=== PATIENT | female | born 1955 | race Caucasian/White ===

== ENCOUNTER 2017-08-16 15:23 | Emergency (ER) | payer MEDICARE, MEDICAID, SELFPAY ==
--- NOTE | 2017-08-16 15:31 | ED.CHESTPAIN ---
HPI - Chest Pain <Olena Valdez PA-C - Last Filed: 08/16/17 22:34> General Chief Complaint: Chest Pain Stated Complaint: Panic Attack, SOB Time Seen by Provider: 08/16/17 15:31 Source: patient Mode of arrival: EMS Limitations: physical limitation History of Present Illness HPI narrative: This 62-year-old female comes in via EMS today due to an episode of generalized weakness with some chest pain and palpitations followed by a panic attack. She states that she was getting up with her caregiver when she felt weak all over, too much so to walk, then had ?racing heart ? and chest pain which she states lasted no more than a few seconds. She states that she felt like she wanted to sit or lie down due to the weakness which was generalized, not localized. She states that she started to feel very anxious and had a panic attack where she was crying and felt very scared. She took her Ativan at home which is usually helpful for her and states this has helped. She is feeling better now and does feel like this was typical of her panic attacks. She has a history of COPD, denies dyspnea currently though she did feel some when she was feeling more anxious earlier. Her contributes later that she is on oxygen at home. She denies any recent cough, fever, or respiratory symptoms. She denies any abdominal pain, nausea or vomiting today though she states she has chronic left-sided pain that she is working up with her PCP. She states she also has weakness there, not sure of source but her later contributes that this is related to her CVA. She denies any urinary symptoms. She had a bowel movement yesterday, states it is possible that she had some blood streaks in the stool, not sure. She has not had a bowel movement today. She denies any new pain or swelling in her extremities. She denies any other new complaints on systems review. Her has been supplies that she was diagnosed with AFib previously, had event monitor and also has a watchman device in place now. Related Data Home Medications Medication Instructions Recorded Confirmed clopidogrel 75 mg PO QDAY #0 05/16/17 08/16/17 fentanyl 150 mcg TOPICAL Q48H #0 05/16/17 08/16/17 fluticasone [Flonase Allergy 2 spray INTRANASAL BID #0 05/16/17 08/16/17 Relief] imipramine HCl 1 dose PO DIRECTED #0 05/16/17 08/16/17 loperamide 1 cap PO QIDP PRN #0 05/16/17 08/16/17 metoprolol succinate [Toprol XL] 25 mg PO QDAY #0 05/16/17 08/16/17 albuterol sulfate [Ventolin HFA] 2 puff INHALATION Q4H 08/16/17 08/16/17 aspirin 1 tab PO DAILY 08/16/17 08/16/17 digoxin [Digitek] 125 mcg PO DAILY 08/16/17 08/16/17 fentanyl 1 patch TRANSDERMAL Q48H 08/16/17 08/16/17 gabapentin 1 dose PO DIRECTED 08/16/17 08/16/17 lorazepam 1 - 2 mg PO TID 08/16/17 08/16/17 prednisone 20 mg PO DAILY PRN 08/16/17 08/16/17 quetiapine 1 - 2 tab PO BEDTIME 08/16/17 08/16/17 zolpidem 1 tab PO BEDTIME PRN 08/16/17 08/16/17 Allergies Allergy/AdvReac Type Severity Reaction Status Date / Time cyclobenzaprine Allergy Unknown Unverified 06/22/17 12:10 [CYCLOBENZAPRINE] ibuprofen [IBUPROFEN] Allergy Unknown Unverified 06/22/17 12:10 iodine [IODINE] Allergy Unknown Unverified 06/22/17 12:10 latex [LATEX] Allergy Unknown Unverified 06/22/17 12:10 Penicillins [PENICILLINS] Allergy Unknown Unverified 06/22/17 12:10 shellfish derived Allergy Unknown Unverified 06/22/17 12:10 [SHELLFISH DERIVED] Review of Systems <Olena Valdez PA-C - Last Filed: 08/16/17 22:34> Review of Systems All systems reviewed & are unremarkable except as noted in HPI and below Exam <Olena Valdez PA-C - Last Filed: 08/16/17 22:34> Initial Vital Signs Initial Vital Signs: Vital Signs Pulse Rate 76 08/16/17 15:32 Respiratory Rate 14 08/16/17 15:32 Blood Pressure 95/48 L 08/16/17 15:32 Pulse Oximetry 96 08/16/17 15:32 GENERAL APPEARANCE: Patient sitting comfortably, in no distress. NECK/THYROID: Neck supple, no masses LUNGS: Clear to auscultation bilaterally, no cough on exam. HEART: RRR without murmur, nl S1, S2, no S3 or S4. ABDOMEN: Soft, NT, ND, + BS x 4 quad EXTREM: No edema, cyanosis, or calf TTP NEURO: Alert, normal speech, does not move L. UE RECT: No external or palpable internal masses, there is only a small amount of brown stool in the vault, guaiac negative <Tomas Willis DO - Last Filed: 08/16/17 23:57> Initial Vital Signs Initial Vital Signs: Vital Signs Pulse Rate 76 08/16/17 15:32 Respiratory Rate 14 08/16/17 15:32 Blood Pressure 95/48 L 08/16/17 15:32 Pulse Oximetry 96 08/16/17 15:32 Course <Olena Valdez PA-C - Last Filed: 08/16/17 22:34> Orders Ordered: ED Orders 08/16/17 15:33 EKG-12 Lead Stat 08/16/17 15:39 XR chest 1V Stat 08/16/17 15:44 EKG-12 Lead Stat 08/16/17 16:05 Complete Blood Count AUTO DIFF Stat Comprehensive Metabolic Panel Stat Lipase Stat Magnesium Stat Troponin with CK Cardiac Panel Stat 08/16/17 19:01 EKG-12 Lead Stat 08/16/17 20:13 Potassium Stat Troponin I Stat Discontinued Medications Sodium Chloride (Normal Saline 0.9%) 1,000 mls @ 1,000 mls/hr IV BOLUS ONE Stop: 08/16/17 16:44 Last Infusion: 08/16/17 16:51 Dose: 0 mls/hr Admin: 08/16/17 15:51 Dose: 1,000 mls/hr Potassium Chloride 20 meq/ (Sodium Chloride) 260 mls @ 130 mls/hr IV NOW ONE Stop: 08/16/17 16:41 Last Infusion: 08/16/17 20:31 Dose: 0 mls/hr Admin: 08/16/17 16:57 Dose: 130 mls/hr Potassium Chloride (Klor-Con M20) 20 meq PO NOW ONE Stop: 08/16/17 16:46 Last Admin: 08/16/17 17:02 Dose: 20 meq Reevaluation(s) Reevaluation #1: Patient's systolic BPs are in the 70s on initial evaluation. She is sitting, alert, talking and appears comfortable. BP cuff noted to be large for her and changed with improvement in her BP is to 80s systolic. Family notes typical BP readings at home 100 to maybe 110 systolic. She has no h/o HTN. During most of her stay patient is resting and sleeping comfortably. She was awakened prior to discharge and is drinking juice and eating applesauce and reports feeling well without chest pain, palpitations, or weakness. 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 Advise that she needs to see her PCP within a day or so for close follow-up and have labs rechecked. Also advised to hold next Metoprolol dose until BP rechecked. She and are agreeable. Findings and EKGs reviewed with Dr. Cruz initially and Dr. Willis prior to d/c who agree with plan. Vital Signs - 8 hr 08/16/17 17:23 08/16/17 18:01 08/16/17 19:52 Pulse Rate 60 61 59 L Respiratory Rate 10 L 10 L 11 L Blood Pressure [Right Arm] 85/50 L 89/47 L 79/40 L Pulse Oximetry 97 95 98 08/16/17 20:30 08/16/17 21:35 Pulse Rate 60 64 Respiratory Rate 10 L 20 Blood Pressure [Right Arm] 87/48 L 95/76 Pulse Oximetry 98 99 <Tomas Willis, - Last Filed: 08/16/17 23:57> Orders Ordered: ED Orders 08/16/17 15:33 EKG-12 Lead Stat 08/16/17 15:39 XR chest 1V Stat 08/16/17 15:44 EKG-12 Lead Stat 08/16/17 16:05 Complete Blood Count AUTO DIFF Stat Comprehensive Metabolic Panel Stat Lipase Stat Magnesium Stat Troponin with CK Cardiac Panel Stat 08/16/17 19:01 EKG-12 Lead Stat 08/16/17 20:13 Potassium Stat Troponin I Stat Discontinued Medications Sodium Chloride (Normal Saline 0.9%) 1,000 mls @ 1,000 mls/hr IV BOLUS ONE Stop: 08/16/17 16:44 Last Infusion: 08/16/17 16:51 Dose: 0 mls/hr Admin: 08/16/17 15:51 Dose: 1,000 mls/hr Potassium Chloride 20 meq/ (Sodium Chloride) 260 mls @ 130 mls/hr IV NOW ONE Stop: 08/16/17 16:41 Last Infusion: 08/16/17 20:31 Dose: 0 mls/hr Admin: 08/16/17 16:57 Dose: 130 mls/hr Potassium Chloride (Klor-Con M20) 20 meq PO NOW ONE Stop: 08/16/17 16:46 Last Admin: 08/16/17 17:02 Dose: 20 meq Vital Signs - 8 hr 08/16/17 17:23 08/16/17 18:01 08/16/17 19:52 Pulse Rate 60 61 59 L Respiratory Rate 10 L 10 L 11 L Blood Pressure [Right Arm] 85/50 L 89/47 L 79/40 L Pulse Oximetry 97 95 98 08/16/17 20:30 08/16/17 21:35 Pulse Rate 60 64 Respiratory Rate 10 L 20 Blood Pressure [Right Arm] 87/48 L 95/76 Pulse Oximetry 98 99 MDM - Chest Pain <Olena Valdez PA-C - Last Filed: 08/16/17 22:34> Lab Data Result diagrams: 08/16/17 16:05 08/16/17 20:13 Lab Results 08/16/17 08/16/17 08/16/17 Range/Units 16:05 16:05 20:13 WBC 4.1 L (4.5-11.0) X10^3/uL RBC 3.80 L (4.0-5.2) X10^6/uL Hgb 11.1 L (12.0-16.0) g/dL Hct 33.6 L (36-46) % MCV 88.3 (80-100) fL MCH 29.3 (26-34) PG MCHC 33.2 (30-36) % RDW 13.8 (11.6-14.8) % Plt Count 169 (150-400) X10^3/uL Neut % (Auto) 47.5 L (50-75) % Lymph % (Auto) 37.5 (25-40) % [place] % (Auto) 8.8 (3-14) % Eos % (Auto) 5.3 H (2-4) % Baso % (Auto) 0.9 (0-2) % Neut # (Auto) 1900 L (8299-0422) /uL Sodium 143 (137-145) mmol/L Potassium 2.8 L 3.3 L (3.4-5.1) mmol/L Chloride 101 (98-107) mmol/L Carbon Dioxide 31 (22-32) mmol/L BUN 8 (7-17) mg/dL Creatinine 0.70 (0.52-1.04) mg/dL Estimated GFR > 60.0 (>60) mL/min BUN/Creatinine Ratio 11.4 (6-22) Glucose 150 H (80-110) mg/dL Calcium 8.4 (8.4-10.2) mg/dL Magnesium 1.9 (1.6-2.3) mg/dL Total Bilirubin 0.4 (0.2-1.3) mg/dL AST 53 H (14-36) IU/L ALT 40 (9-52) IU/L Alkaline Phosphatase 295 H (38-126) U/L Total Creatine Kinase 72 (30-135) U/L CK-MB (CK-2) TNP Troponin I < 0.012 < 0.012 (0.01-0.034) ng/mL Total Protein 7.1 (6.3-8.2) g/dL Albumin 3.6 (3.5-5.0) g/dL Globulin 3.5 (1.7-4.1) g/dL Albumin/Globulin Ratio 1.0 (1.0-2.8) Lipase 43 (23-300) U/L Imaging Data extremity: Radiologist's impression: [address] [address] XRay Report Signed Patient: Ingrid Maria MR#: [id number] : 1955 Acct:[id number] Age/Sex: 62 / F Date of Service: 08/16/17 Loc: ED Accession Number: [id number] Procedure: XR chest 1V Ordering Provider: Olena Valdez P.A-C PROCEDURE: XR CHEST 1V INDICATIONS: pain, shortness of breath TECHNIQUE: One view of the chest was acquired. COMPARISON: [facility], CHEST 1 VIEW, 11/07/2015, 22:49. FINDINGS: Surgical changes and devices: None. Lungs and pleura: No pleural effusions or pneumothorax. Lungs are clear. Mediastinum: Mediastinal contours appear normal. Heart size is normal. Bones and chest wall: No suspicious bony lesions. Overlying soft tissues appear unremarkable. IMPRESSION: No acute cardiopulmonary disease process. Dictated by: Shaniqua Thurman MD, PhD on 08/16/2017 at 16:00 Approved by: Shaniqua Thurman MD, PhD on 08/16/2017 at 16:01 ECG Data Attestation: I personally reviewed and interpreted this ECG as follows: (1. Normal sinus rhythm with some subtle new T-wave inversions, rate 73. 2. Normal sinus rhythm rate 61. Normal axis in both) Prior ECG tracings: available for review <Tomas Willis DO - Last Filed: 08/16/17 23:57> Lab Data Lab Results 08/16/17 08/16/17 08/16/17 Range/Units 16:05 16:05 20:13 WBC 4.1 L (4.5-11.0) X10^3/uL RBC 3.80 L (4.0-5.2) X10^6/uL Hgb 11.1 L (12.0-16.0) g/dL Hct 33.6 L (36-46) % MCV 88.3 (80-100) fL MCH 29.3 (26-34) PG MCHC 33.2 (30-36) % RDW 13.8 (11.6-14.8) % Plt Count 169 (150-400) X10^3/uL Neut % (Auto) 47.5 L (50-75) % Lymph % (Auto) 37.5 (25-40) % [place] % (Auto) 8.8 (3-14) % Eos % (Auto) 5.3 H (2-4) % Baso % (Auto) 0.9 (0-2) % Neut # (Auto) 1900 L (3589-6713) /uL Sodium 143 (137-145) mmol/L Potassium 2.8 L 3.3 L (3.4-5.1) mmol/L Chloride 101 (98-107) mmol/L Carbon Dioxide 31 (22-32) mmol/L BUN 8 (7-17) mg/dL Creatinine 0.70 (0.52-1.04) mg/dL Estimated GFR > 60.0 (>60) mL/min BUN/Creatinine Ratio 11.4 (6-22) Glucose 150 H (80-110) mg/dL Calcium 8.4 (8.4-10.2) mg/dL Magnesium 1.9 (1.6-2.3) mg/dL Total Bilirubin 0.4 (0.2-1.3) mg/dL AST 53 H (14-36) IU/L ALT 40 (9-52) IU/L Alkaline Phosphatase 295 H (38-126) U/L Total Creatine Kinase 72 (30-135) U/L CK-MB (CK-2) TNP Troponin I < 0.012 < 0.012 (0.01-0.034) ng/mL Total Protein 7.1 (6.3-8.2) g/dL Albumin 3.6 (3.5-5.0) g/dL Globulin 3.5 (1.7-4.1) g/dL Albumin/Globulin Ratio 1.0 (1.0-2.8) Lipase 43 (23-300) U/L Discharge Plan Departure Patient Disposition: Home, Self-Care Clinical Impression: Acute hypokalemia, Weakness, Anxiety Discharge Date/Time: 08/16/17 22:32 Interventions: ED Discharge Assessment Last Done: 08/16/17 22:32 Instructions: DI for Hypokalemia Activity Restrictions/Additional Instructions: I agree with you that you likely had some brief atrial fibrillation this morning that caused your heart palpitations and chest discomfort, and that your panic attack likely contributed to your symptoms. Since the chest discomfort had resolved by the time you got here and your ativan helped as usual, it is reasonable to monitor this at home. Your heart tests today did not show evidence of new heart attack or lack of oxygen. You were found to have low potassium today, which is a serious problem. This is corrected with the potassium you have had here, however I have given you a prescription for potassium to take once daily starting tomorrow, and you need to have your level rechecked with Dr. Hernandez's office tomorrow or at least by . Your blood pressure was also on the low side today versus your usual at home, so please do not take your Metoprolol tonight and have your blood pressure rechecked at your follow up visit as well. You should get to the closest ED if you are feeling acutely worse again Prescriptions: No Action fentanyl 50 MCG/HR patch 72 hour 150 mcg Topical Q48H Qty: 0 RF: 0 clopidogrel 75 MG tablet 75 mg PO QDAY Qty: 0 RF: 0 imipramine HCl 10 MG tablet 1 dose PO DIRECTED Qty: 0 RF: 0 loperamide 2 MG capsule 1 cap PO QIDP PRN (Reason: Loose Stool) Qty: 0 RF: 0 metoprolol succinate [Toprol XL] 25 MG tablet extended release 24 hr 25 mg PO QDAY Qty: 0 RF: 0 fluticasone [Flonase Allergy Relief] 9.9 ML spray,suspension 2 spray Intranasal BID Qty: 0 RF: 0 gabapentin 600 mg Tablet 1 dose PO DIRECTED RF: 0 prednisone 20 mg Tablet 20 mg PO DAILY PRN (Reason: Inflammation) RF: 0 quetiapine 100 mg Tablet 1 - 2 tab PO BEDTIME RF: 0 fentanyl 100 mcg/hr Patch 72 Hour 1 patch TRANSDERMAL Q48H RF: 0 digoxin [Digitek] 125 mcg Tablet 125 mcg PO DAILY RF: 0 albuterol sulfate [Ventolin HFA] 90 mcg/actuation Hfa Aerosol Inhaler 2 puff Inhalation Q4H RF: 0 zolpidem 12.5 mg Tablet,Ext Release Multiphase 1 tab PO BEDTIME PRN (Reason: Sleep) RF: 0 lorazepam 1 mg Tablet 1 - 2 mg PO TID RF: 0 aspirin tablet 1 tab PO DAILY RF: 0 Referrals: Jayesh Hernandez DO [Primary Care Provider] - Ponce Huntley MD [Non-Staff] - <Tomas Willis DO - Last Filed: 08/16/17 23:57> [facility]: Upon return home family realized there was no prescription for potassium, I wrote a prescription and faxed it to [facility] in no car were at their request. Potassium chloride 40 mEq p.o. daily x4 days no refills I was immediately available in the department for consultation. Documentation has been reviewed. I agree with assessment and plan.
[2017-08-16 15:32] VITALS: BP 95/48; PULSE 76; RESP 14; O2SAT 96
--- NOTE | 2017-08-16 15:39 | DI.RAD.S_ITS ---
PROCEDURE: XR CHEST 1V INDICATIONS: pain, shortness of breath TECHNIQUE: One view of the chest was acquired. COMPARISON: [facility], , CHEST 1 VIEW, 11/07/2015, 22:49. FINDINGS: Surgical changes and devices: None. Lungs and pleura: No pleural effusions or pneumothorax. Lungs are clear. Mediastinum: Mediastinal contours appear normal. Heart size is normal. Bones and chest wall: No suspicious bony lesions. Overlying soft tissues appear unremarkable. IMPRESSION: No acute cardiopulmonary disease process. Dictated by: Shaniqua Thurman MD, PhD on 08/16/2017 at 16:00 Approved by: Shaniqua Thurman MD, PhD on 08/16/2017 at 16:01
[2017-08-16] MEDS: SODIUM CHLORIDE 0.9% 1,000 ML 1000 ML IV (15:51)
[2017-08-16 16:12] LABS: Add Manual Diff / Slide Review NO; Basophils Percent Auto 0.9 % (0-2); Eosinophils Percent Auto 5.3 % (2-4); Hematocrit 33.6 % (36-46); Hemoglobin 11.1 g/dL (12.0-16.0); Lymphocytes Percent Auto 37.5 % (25-40); Mean Corpuscular HGB Conc 33.2 % (30-36); Mean Corpuscular Hemoglobin 29.3 PG (26-34); Mean Corpuscular Volume 88.3 fL (80-100); Monocytes Percent Auto 8.8 % (3-14); Neutrophils Absolute Auto 1900 /uL (3000-5900); Neutrophils Percent Auto 47.5 % (50-75); Platelet Count 169 X10^3/uL (150-400); Red Cell Distribution Width 13.8 % (11.6-14.8); White Blood Cell Count 4.1 X10^3/uL (4.5-11.0)
[2017-08-16 16:25] LABS: Alanine Aminotransferase 40 IU/L (9-52); Albumin 3.6 g/dL (3.5-5.0); Alkaline Phosphatase 295 U/L (38-126); Aspartate Aminotransferase 53 IU/L (14-36); BUN Creatinine Ratio 11.4 (6-22); Bilirubin Total 0.4 mg/dL (0.2-1.3); Blood Urea Nitrogen 8 mg/dL (7-17); Calcium 8.4 mg/dL (8.4-10.2); Carbon Dioxide 31 mmol/L (22-32); Chloride 101 mmol/L (98-107); Creatine Kinase 72 U/L (30-135); Estimated Glomerular Filt Rate > 60.0 mL/min (>60); Globulin 3.5 g/dL (1.7-4.1); Glucose 150 mg/dL (80-110); HEMOLYSIS < 15 (0-50); Lipase 43 U/L (23-300); Potassium 2.8 mmol/L (3.4-5.1); Sodium 143 mmol/L (137-145); Total Protein 7.1 g/dL (6.3-8.2)
[2017-08-16 16:38] LABS: Troponin I < 0.012 ng/mL (0.01-0.034)
[2017-08-16 16:53] LABS: Magnesium 1.9 mg/dL (1.6-2.3)
[2017-08-16] MEDS: POTASSIUM CHLORIDE 20 MEQ in SODIUM CHLORIDE 0.9% 250 ML 130 ML IV (16:57)
[2017-08-16] MEDS: POTASSIUM CHLORIDE 20 MEQ TAB PO (17:02)
[2017-08-16 17:23] VITALS: BP 85/50; PULSE 60; RESP 10; O2SAT 97
[2017-08-16 18:01] VITALS: BP 89/47; PULSE 61; RESP 10; O2SAT 95
[2017-08-16 19:52] VITALS: BP 79/40; PULSE 59; RESP 11; O2SAT 98
[2017-08-16 20:30] VITALS: BP 87/48; PULSE 60; RESP 10; O2SAT 98
[2017-08-16 20:31] LABS: HEMOLYSIS < 15 (0-50); Potassium 3.3 mmol/L (3.4-5.1)
[2017-08-16 20:47] LABS: Troponin I < 0.012 ng/mL (0.01-0.034)
[2017-08-16 21:35] VITALS: BP 95/76; PULSE 64; RESP 20; O2SAT 99
== END 2017-08-16 22:32 | disposition home or self-care (01) ==
PROVIDERS: Emergency Provider Internal Medicine; PCP Family Medicine
DX: E87.6 Hypokalemia (principal); R53.1 Weakness; F41.9 Anxiety disorder, unspecified
CPT/HCPCS: 36415; 71045; 80053; 82272; 82550; 83690; 83735; 84132; 84484; 85025; 93005; 96361; 96365; 96366; 99284; 99285; J3480

== ENCOUNTER → 2017-12-05 19:07 | Outpatient (CLI) | payer MEDICARE, MEDICAID, SELFPAY ==
--- NOTE | 2017-12-05 19:09 | DI.RAD.S_ITS ---
PROCEDURE: XR ELBOW LT MIN 3V INDICATIONS: Fall TECHNIQUE: 3 views of the elbow were acquired. COMPARISON: None. FINDINGS: Bones: No fractures or dislocations. No suspicious bony lesions. Soft tissues: No elbow joint effusion. No suspicious soft tissue calcifications. IMPRESSION: No fracture or dislocation. If clinical symptoms persist or clinical suspicion for pathology is high, a repeat examination in 7-10 days, or advanced imaging such as CT or MRI is suggested for further evaluation. Dictated by: Carlos Kraft M.D. on 12/05/2017 at 19:50 Approved by: Carlos Kraft M.D. on 12/05/2017 at 19:51
--- NOTE | 2017-12-05 19:09 | DI.RAD.S_ITS ---
PROCEDURE: XR SHOULDER LT MIN 2V INDICATIONS: Fall TECHNIQUE: 2 views of the shoulder were acquired. COMPARISON: [facility], CT, CHEST W/O CONTRAST, 01/15/2014, 11:29. [facility], CR, XR CHEST 1V, 08/16/2017, 15:54. FINDINGS: Bones: No fractures or dislocations. No suspicious bony lesions. There is [id number] glenohumeral and acromial clavicular joint degeneration. Visualized ribs appear intact. Soft tissues: No suspicious soft tissue calcifications. There are multiple calcific densities in the left lower lobe likely secondary to old granulomas. IMPRESSION: No acute fracture dislocation. If clinical symptoms persist or clinical suspicion for pathology is high, a repeat examination in 7-10 days, or advanced imaging such as CT or MRI is suggested for further evaluation. Dictated by: Carlos Kraft M.D. on 12/05/2017 at 19:51 Approved by: Carlos Kraft M.D. on 12/05/2017 at 19:54
== END ==
PROVIDERS: PCP Family Medicine; Visit Provider Physician Assistant
DX: M25.522 Pain in left elbow (principal); M25.512 Pain in left shoulder; W19.XXXA Unspecified fall, initial encounter
CPT/HCPCS: 73030; 73080

== ENCOUNTER → 2018-08-25 08:15 | Outpatient (CLI) | payer MEDICARE, MEDICAID, SELFPAY | PROVIDERS: PCP Family Medicine; Visit Provider Physician Assistant | DX: N39.0 Urinary tract infection, site not specified (principal) | CPT/HCPCS: 87077; 87086; 87186 ==

== ENCOUNTER → 2023-04-12 19:37 | Outpatient (CLI) | payer MEDICARE, MEDICAID, SELFPAY ==
--- NOTE | 2023-04-12 19:42 | DI.RAD.S_ITS ---
PROCEDURE: XR CERVICAL SPINE 2V OR 3V INDICATIONS: Neck pain, LUE radiculopathy, hx c-spine posterior fusion TECHNIQUE: 3 view(s) of the cervical spine were acquired. COMPARISON: None. FINDINGS: Bones: Massive cervico thoracic posterior leanne and screw construct is associated with discectomy and fusion in the lower cervical spine. Vertebral bodies appear grossly aligned, although evaluation is limited by significant hardware. Generalized decreased osseous mineralization noted. Additionally, larger bilateral craniotomies/cranioplasty with mesh and round and sq plate fixation. Large intracranial aneurysm coils noted near the suprasellar cistern Soft tissues: No prevertebral soft tissue swelling. IMPRESSION: Although evaluation is limited by extensive hardware overlap, no grossly displaced cervical fracture or evidence of hardware failure. Osteopenia. Partially imaged craniotomy/cranioplasty with mesh, fixation plates and large aneurysm coil Approved by: Maximilian Huizar M.D. on 04/13/2023 at 20:22
--- NOTE | 2023-04-12 19:42 | DI.RAD.S_ITS ---
PROCEDURE: XR ELBOW LT 2V INDICATIONS: s/p fall on LUE w/pain in humerus, elbow and wrist TECHNIQUE: 2 views of the elbow were acquired. COMPARISON: None. FINDINGS: Bones: No fractures or dislocations. No suspicious bony lesions. Soft tissues: No elbow joint effusion. No suspicious soft tissue calcifications. IMPRESSION: No acute bony abnormality or significant joint effusion. Approved by: Maximilian Huizar M.D. on 04/13/2023 at 20:14
--- NOTE | 2023-04-12 19:42 | DI.RAD.S_ITS ---
PROCEDURE: XR SHOULDER LT MIN 2V INDICATIONS: s/p fall on LUE w/pain in humerus, elbow and wrist TECHNIQUE: 3 views of the shoulder were acquired. COMPARISON: [facility], CR, XR SHOULDER LT MIN 2V, 12/05/2017, 18:46. FINDINGS: Bones: Left total shoulder arthroplasty is new from the prior exam. Hardware failure loosening. Extensive cervicothoracic leanne and screw instrumentation with presumed posterior decompression. Generalized decreased osseous mineralization noted. Soft tissues: No suspicious soft tissue calcifications. Parasternal implantable phototypesetting equipment monitor as well as atrial appendage occlusion device noted IMPRESSION: Osteopenia without fracture. Left total shoulder arthroplasty in good position. No hardware or loosening Approved by: Maximilian Huizar M.D. on 04/13/2023 at 20:18
--- NOTE | 2023-04-12 19:42 | DI.RAD.S_ITS ---
PROCEDURE: XR WRIST LT MIN 3V INDICATIONS: s/p fall on LUE w/pain in humerus, elbow and wrist TECHNIQUE: 5 views of the wrist were acquired. COMPARISON: None. FINDINGS: Bones: No fractures or dislocations. No suspicious bony lesions. First carpometacarpal joint space narrowing small marginal osteophyte. Generalized decreased osseous mineralization noted. Soft tissues: No suspicious soft tissue calcifications. IMPRESSION: Osteopenia, and osteoarthritis without fracture Approved by: Maximilian Huizar M.D. on 04/13/2023 at 20:15
== END ==
LOC: RAD 19:41
PROVIDERS: PCP Family Medicine; Referring Provider Physician Assistant Surgical; Visit Provider Physician Assistant Surgical
DX: S49.92XA Unspecified injury of left shoulder and upper arm, initial encounter (principal); M54.12 Radiculopathy, cervical region; M54.2 Cervicalgia; M85.89 Other specified disorders of bone density and structure, multiple sites; M19.032 Primary osteoarthritis, left wrist; M79.602 Pain in left arm; W19.XXXA Unspecified fall, initial encounter; Z96.612 Presence of left artificial shoulder joint; Z98.1 Arthrodesis status
CPT/HCPCS: 72040; 73030; 73070; 73110

== ENCOUNTER 2023-04-12 20:29 | Emergency (ER) | payer MEDICARE, MEDICAID, SELFPAY ==
[2023-04-12] VITALS (17 sets, daily range): BP systolic 84–114; BP diastolic 50–61; PULSE 61–78; RESP 7–22; TEMP 36.3; O2SAT 94–100; BMI 23.4
--- NOTE | 2023-04-12 20:49 | DI.CT.S_ITS ---
PROCEDURE: CT HEAD/BRAIN WO CON INDICATIONS: SLURRED SPEECH, DROOLING X3 DAYS, BREAKTHROUGH SEIZURE TONIG TECHNIQUE: Noncontrast 4.5 mm thick angled axial sections acquired from the foramen magnum to the vertex, with coronal and sagittal reformats. For radiation dose reduction, the following was used: automated exposure control, adjustment of mA and/or kV according to patient size. COMPARISON: [facility], CT, HEAD WITHOUT CONTRAST, 05/16/2017, 17:29. FINDINGS: Image quality: Diagnostic. Suboptimal evaluation due to metallic artifact from an embolization coil in the left MCA territory. CSF spaces: Basal cisterns are patent. No extra-axial fluid collections. Ventricles are normal in size and shape. Brain: No midline shift. No intracranial masses or hemorrhage. Levy-white matter interface is normal. Right MCA territory encephalomalacia. Skull and face: Calvarium and visualized facial bones are intact, without suspicious lesions. [place] holes and craniectomies with overlying mesh. Sinuses: Visualized sinuses and mastoids are clear. IMPRESSION: No acute intracranial pathology. Dictated by: Addison Walker M.D. on 04/12/2023 at 21:59 Approved by: Addison Walker M.D. on 04/12/2023 at 22:01
--- NOTE | 2023-04-12 20:50 | DI.RAD.S_ITS ---
PROCEDURE: XR CHEST 1V INDICATIONS: SLURRED SPEECH, DROOLING X3 DAYS, BREAKTHROUGH SEIZURE TONIG TECHNIQUE: One view of the chest was acquired. COMPARISON: [facility], [place], XR CHEST 1V, 08/16/2017, 15:54. [facility], [place], CHEST 1 VIEW, 11/07/2015, 22:49. FINDINGS: Surgical changes and devices: Lead loose pacemaker. Surgical fusion of the cervical thoracic spine. Left shoulder arthroplasty. Lungs and pleura: Lungs are clear. No pleural effusions or pneumothorax. Mediastinum: Mediastinal contours appear normal. Heart size is normal. Bones and chest wall: No suspicious bony lesions. Overlying soft tissues appear unremarkable. IMPRESSION: No acute cardiopulmonary abnormality is seen. Dictated by: Addison Walker M.D. on 04/12/2023 at 21:58 Approved by: Addison Walker M.D. on 04/12/2023 at 21:59
--- NOTE | 2023-04-12 20:50 | ED.NEUROSD ---
HPI - Neuro Symptoms/Deficit General Chief Complaint: Seizure Stated Complaint: not feeling well, thinks seizure Time Seen by Provider: 04/12/23 20:49 History of Present Illness HPI Narrative: 67-year-old female with history of brain aneurysm status post coiling x4 at [facility], seizure disorder on Keppra, CVA with residual left-sided weakness, COPD on chronic oxygen presents from the walk-in clinic for left-sided arm pain after fall 1 month prior. At the walk-in clinic patient was reporting a worsening headache and has been noted drooling and slurred speech that was slightly different from her baseline over the last 2-3 days. There was concern that the patient may have had a seizure at the walk-in clinic and she was transferred to the emergency department for evaluation. On arrival patient is on her side, clutching her head, stating she was cold and requesting her jacket. at bedside provides most of the history, he states that ever since patient is aneurysms and subsequent stroke she has had intermittent flare-ups of left-sided symptoms including facial droop and slurred speech, that are not present when patient is feeling well. He states that they have been extensively evaluated by neurosurgery and neurology at [facility] and no cause for these intermittent flare-ups has been found. Related Data Home Medications Medication Instructions Recorded Confirmed albuterol sulfate 90 mcg/actuation 2 puff inhalation Q4H shortness of 08/16/17 04/12/23 aerosol inhaler (Ventolin HFA) breath aspirin 1 tab PO DAILY 08/16/17 04/12/23 budesonide 0.5 mg/2 mL suspension 0.5 mg inhalation BID 01/07/19 04/12/23 for nebulization (Pulmicort) calcium carbonate 200 mg calcium 200 mg PO BID 01/07/19 04/12/23 (500 mg) chewable tablet (Tums) clindamycin HCl 300 mg capsule 300 mg PO Q8H 01/07/19 04/12/23 docusate sodium 100 mg capsule 100 mg PO DAILY 01/07/19 04/12/23 fentanyl 100 mcg/hr transdermal 1 patch transdermal Q72H 01/07/19 04/12/23 patch fluticasone propionate 50 1 spray intranasal DAILY 01/07/19 04/12/23 mcg/actuation nasal spray,suspension gabapentin 600 mg tablet 600 mg PO DAILY 01/07/19 04/12/23 hydrocodone 10 mg-chlorpheniramine 5 ml PO Q12H PRN 01/07/19 04/12/23 8 mg/5 mL oral susp extend.rel 12hr ipratropium 0.5 mg-albuterol 3 mg 3 ml inhalation Q6-8H PRN 01/07/19 04/12/23 (2.5 mg base)/3 mL nebulization soln loperamide 2 mg capsule 2 mg PO Q4H 01/07/19 04/12/23 (Anti-Diarrheal (loperamide)) lorazepam 1 mg tablet (Ativan) 1 mg PO DAILY PRN 01/07/19 04/12/23 morphine 15 mg immediate release 15 mg PO Q4H PRN 01/07/19 04/12/23 tablet naloxone 4 mg/actuation nasal 4 mg intranasal Q2M PRN 01/07/19 04/12/23 spray (Narcan) nitroglycerin 0.4 mg sublingual 0.4 mg sublingual Q5M PRN 01/07/19 04/12/23 tablet (Nitrostat) prednisone 20 mg tablet (Deltasone) 20 mg PO DAILY 01/07/19 04/12/23 quetiapine 100 mg tablet (Seroquel) 100 mg PO DAILY 01/07/19 04/12/23 zolpidem 12.5 mg tablet,extended 12.5 mg PO BEDTIME PRN 01/07/19 04/12/23 release,multiphase (Ambien CR) Previous Rx's Medication Instructions Recorded fluconazole 150 mg tablet 150 mg PO ONCE #1 tab 01/07/19 Allergies Allergy/AdvReac Type Severity Reaction Status Date / Time cyclobenzaprine Allergy Unknown Verified 04/12/23 20:50 [CYCLOBENZAPRINE] ibuprofen [IBUPROFEN] Allergy Unknown Verified 04/12/23 20:50 iodine [IODINE] Allergy Unknown Verified 04/12/23 20:50 latex [LATEX] Allergy Unknown Verified 04/12/23 20:50 Penicillins [PENICILLINS] Allergy Unknown Verified 04/12/23 20:50 shellfish derived Allergy Unknown Verified 04/12/23 20:50 [SHELLFISH DERIVED] aspirin Allergy rash Verified 04/12/23 20:50 meperidine Allergy Verified 04/12/23 20:50 metrizamide Allergy Verified 04/12/23 20:50 venlafaxine Allergy breathing Verified 04/12/23 20:50 difficulty NSAIDS (Non-Steroidal AdvReac rash Verified 04/12/23 20:50 Anti-Inflamma warfarin AdvReac Rash Verified 04/12/23 20:50 Review of Systems Review of Systems Narrative: Negative except as noted above Patient History Medical History Atrial fibrillation Left-sided weakness Mitral valve prolapse Blindness of right eye History of CVA (cerebrovascular accident) COPD (chronic obstructive pulmonary disease) Surgical History H/O craniotomy History of lumbar surgery History of appendectomy History of bladder suspension procedure Social History Smoking Status: Former smoker substance use type: does not use Smoking Status: Former smoker Exam Initial Vital Signs Initial Vital Signs: Vital Signs Temperature 97.4 F L 04/12/23 20:50 Pulse Rate 72 04/12/23 20:50 Respiratory Rate 16 04/12/23 20:50 Blood Pressure 114/56 L 04/12/23 20:50 Pulse Oximetry 96 04/12/23 20:50 Oxygen Delivery Method Nasal Cannula 04/12/23 20:50 Oxygen Flow Rate 2 04/12/23 20:50 Const: Awake, eyes open, debilitated, frail, appears much older than stated age Eyes: PERRL, EOMI, conjunctiva normal Cardiac: regular rate, regular rhythm RESP: Unlabored, on supplemental nasal cannula Skin: Warm, Dry, intact, no rashes Neuro: AO x2, CN II-XII grossly intact, decreased strength left upper and left lower extremity, claw-like deformity of left hand Procedures [facility] Procedure Name of Procedure: ultrasound guided IV access Side (if applicable): left Technique/Description of procedure performed: US guided IV placement in L AC. 20g IV inserted in 1 attempt. No complications. Patient tolerated procedure: Well and No complications Complications: none Course Orders Ordered: ED Orders 04/12/23 20:49 CT head/brain wo con Stat 04/12/23 20:50 Chest [XR chest 1V] Stat EKG-12 Lead Stat 04/12/23 21:07 Respiratory Panel (Film Array) Stat 04/12/23 22:35 CBC Auto Diff [Complete Blood Count AUTO DIFF] Stat CMP [Comprehensive Metabolic Panel] Stat Ethanol (ETOH) Stat PT [Prothrombin Time INR] Stat TSH [Thyroid Stimulating Hormone] Stat Troponin & CK Cardiac Panel Stat 04/13/23 00:20 UA Complete [Urinalysis and Microscopic] Stat Urine Drug Screen, Rapid Stat Discontinued Medications Hydromorphone HCl (Hydromorphone 2 Mg Tablet) 2 mg PO NOW ONE Stop: 04/13/23 01:03 Last Admin: 04/13/23 01:05 Dose: 2 mg Documented By: EMILIE Sodium Chloride (Normal Saline 0.9%) 500 mls @ 1,000 mls/hr IV BOLUS ONE Stop: 04/12/23 23:51 Last Infusion: 04/12/23 23:58 Dose: Infused Documented By: Admin: 04/12/23 23:23 Dose: 1,000 mls/hr Documented By: EMILIE Sodium Chloride (Normal Saline 0.9%) 1,000 mls @ 1,000 mls/hr IV BOLUS ONE Stop: 04/13/23 00:48 Last Infusion: 04/13/23 00:54 Dose: Infused Documented By: Admin: 04/12/23 23:50 Dose: 1,000 mls/hr Documented By: EMILIE Sodium Chloride (Sodium Chloride 0.9% 500 Ml) 1,000 ml IV NOW ONE Stop: 04/12/23 23:47 Last Admin: 04/12/23 23:50 Dose: Not Given Documented By: EMILIE Vital Signs Vital signs: Vital Signs - 8 hr 04/12/23 20:50 04/12/23 20:50 04/12/23 21:00 Temperature 97.4 F L Pulse Rate 72 71 76 Respiratory Rate 16 13 Blood Pressure 114/56 L Pulse Oximetry 96 94 100 Oxygen Delivery Method Nasal Cannula Nasal Cannula Oxygen Flow Rate 2 2 04/12/23 21:42 04/12/23 22:00 04/12/23 22:30 Temperature Pulse Rate 69 74 72 Respiratory Rate 22 12 10 L Blood Pressure Pulse Oximetry 98 98 Oxygen Delivery Method Oxygen Flow Rate 04/12/23 23:00 04/12/23 23:04 04/12/23 23:04 Temperature Pulse Rate 63 66 Respiratory Rate 8 L 7 L Blood Pressure 84/50 L Pulse Oximetry 100 98 Oxygen Delivery Method Oxygen Flow Rate 04/12/23 23:05 04/12/23 23:05 04/12/23 23:17 Temperature Pulse Rate 61 70 Respiratory Rate 12 Blood Pressure 90/55 L Pulse Oximetry 99 Oxygen Delivery Method Oxygen Flow Rate 04/12/23 23:17 04/12/23 23:21 04/12/23 23:21 Temperature Pulse Rate 75 Respiratory Rate 13 14 Blood Pressure 86/53 L 93/55 L Pulse Oximetry Oxygen Delivery Method Nasal Cannula Oxygen Flow Rate 2 04/12/23 23:25 04/12/23 23:25 04/12/23 23:30 Temperature Pulse Rate 76 Respiratory Rate 11 L Blood Pressure 85/55 L 99/55 L Pulse Oximetry Oxygen Delivery Method Oxygen Flow Rate 04/12/23 23:35 04/12/23 23:35 04/12/23 23:40 Temperature Pulse Rate 78 78 Respiratory Rate 13 12 Blood Pressure 99/56 L Pulse Oximetry 100 100 Oxygen Delivery Method Nasal Cannula Oxygen Flow Rate 2 04/12/23 23:40 04/12/23 23:45 04/12/23 23:45 Temperature Pulse Rate 78 Respiratory Rate 10 L Blood Pressure 87/50 L 110/61 Pulse Oximetry 100 Oxygen Delivery Method Oxygen Flow Rate 04/12/23 23:50 04/12/23 23:50 04/12/23 23:55 Temperature Pulse Rate 77 78 Respiratory Rate 13 9 L Blood Pressure 93/51 L Pulse Oximetry 100 100 Oxygen Delivery Method Oxygen Flow Rate 04/12/23 23:55 04/13/23 00:00 04/13/23 00:00 Temperature Pulse Rate 79 Respiratory Rate 12 Blood Pressure 110/55 L 93/57 L Pulse Oximetry 100 Oxygen Delivery Method Oxygen Flow Rate 04/13/23 00:06 04/13/23 00:06 04/13/23 00:10 Temperature Pulse Rate 78 Respiratory Rate Blood Pressure 103/55 L 118/56 L Pulse Oximetry 100 Oxygen Delivery Method Oxygen Flow Rate 04/13/23 00:10 04/13/23 00:15 04/13/23 00:15 Temperature Pulse Rate 78 77 Respiratory Rate 14 Blood Pressure 123/56 L Pulse Oximetry 100 100 Oxygen Delivery Method Oxygen Flow Rate 04/13/23 00:20 04/13/23 00:20 04/13/23 00:25 Temperature Pulse Rate 78 77 Respiratory Rate 17 12 Blood Pressure 98/51 L Pulse Oximetry 100 98 Oxygen Delivery Method Oxygen Flow Rate 04/13/23 00:25 04/13/23 00:30 04/13/23 00:30 Temperature Pulse Rate 76 Respiratory Rate Blood Pressure 99/58 L 99/58 L Pulse Oximetry 100 Oxygen Delivery Method Oxygen Flow Rate 04/13/23 00:35 04/13/23 00:35 04/13/23 00:41 Temperature Pulse Rate 76 75 Respiratory Rate Blood Pressure 100/56 L Pulse Oximetry 100 100 Oxygen Delivery Method Oxygen Flow Rate 04/13/23 00:41 04/13/23 00:45 04/13/23 00:45 Temperature Pulse Rate 75 Respiratory Rate Blood Pressure 91/51 L 107/59 L Pulse Oximetry 100 Oxygen Delivery Method Oxygen Flow Rate 04/13/23 00:50 04/13/23 00:50 04/13/23 00:55 Temperature Pulse Rate 74 74 Respiratory Rate Blood Pressure 96/55 L Pulse Oximetry 100 100 Oxygen Delivery Method Nasal Cannula Nasal Cannula Oxygen Flow Rate 2 2 04/13/23 00:55 04/13/23 01:00 04/13/23 01:00 Temperature Pulse Rate 78 Respiratory Rate 12 Blood Pressure 95/54 L 95/55 L Pulse Oximetry 100 Oxygen Delivery Method Nasal Cannula Oxygen Flow Rate 2 MDM - Neuro Symptoms/Deficit Differential Diagnosis Differential diagnosis: Likely convulsions, delirium and cerebrovascular accident Lab Data 04/12/23 22:35 04/12/23 22:35 Labs: Lab Results 04/12/23 04/12/23 04/13/23 Range/Units 21:07 22:35 00:20 WBC 3.0 L (4.5-11.0) X10^3/uL RBC 2.50 L (4.0-5.2) X10^6/uL Hgb 9.1 L (12.0-16.0) g/dL Hct 27.0 L (36-46) % MCV 108.0 H (80-100) fL MCH 36.4 H (26-34) PG MCHC 33.7 (30-36) % RDW 18.3 H (11.6-14.8) % Plt Count 186 (150-400) X10^3/uL Neut % (Auto) 47.1 L (50-75) % Lymph % (Auto) 34.9 (25-40) % [place] % (Auto) 5.9 (3-14) % Eos % (Auto) 10.3 H (2-4) % Baso % (Auto) 1.8 (0-2) % Neut # (Auto) 1400 L (1993-2638) /uL Lymph # (Auto) 1100 (3523-2814) /uL [place] # (Auto) 200 (0-900) /uL Eos # (Auto) 300 (0-450) /uL Baso # (Auto) 100 (0-100) /uL PT 11.9 (9.4-12.5) SECONDS INR 1.0 (0.9-1.3) Sodium 138 (137-145) mmol/L Potassium 3.5 (3.4-5.1) mmol/L Chloride 103 (98-107) mmol/L Carbon Dioxide 32 (22-32) mmol/L BUN 7 (7-17) mg/dL Creatinine 0.56 (0.52-1.04) mg/dL Estimated GFR > 60 (>60) mL/min BUN/Creatinine Ratio 12.5 (6-22) Glucose 93 (80-110) mg/dL Calcium 8.3 L (8.4-10.2) mg/dL Total Bilirubin 1.1 (0.2-1.3) mg/dL AST 75 H (14-36) IU/L ALT 25 (<35) IU/L Alkaline Phosphatase 373 H (38-126) U/L Total Creatine Kinase 37 (30-135) U/L Troponin I < 0.012 (0.01-0.034) ng/mL Total Protein 7.3 (6.3-8.2) g/dL Albumin 3.4 L (3.5-5.0) g/dL Globulin 3.9 (1.7-4.1) g/dL Albumin/Globulin Ratio 0.9 L (1.0-2.8) TSH 1.45 (0.47-4.68) uIU/mL Urine Color Yellow Urine Appearance Clear Urine pH 6.5 (4.5-8.0) Ur Specific [place] 1.015 (1.000-1.035) Urine Protein Negative (Negative) Urine Glucose (UA) Negative (Negative) g/dL Urine Ketones Negative (NEGATIVE) Urine Occult Blood Negative (Negative) Urine Nitrate Negative (Negative) Urine Bilirubin Negative (NEGATIVE) Urine Urobilinogen 1.0 (0.2) E.U./dL Ur Leukocyte Esterase Negative (NEGATIVE) Urine RBC None seen (0-5/HPF) Urine WBC None seen (0-5/HPF) Ur Squamous Epith Cells 0-1 /hpf (0-5/HPF) Urine Bacteria None seen (None) Ur Culture Indicated? Cult not indicated Vol Urine Centrifuged 10ml (spun) U Opiates 300ng/mL cut Positive H (Negative) Ur Oxycodone Screen Negative (Negative) Urine Methadone Screen Negative (Negative) Ur Barbiturates Screen Negative (Negative) U Tricyclic Antidepress Negative (Negative) Ur Phencyclidine Scrn Negative (Negative) Ur Amphetamines Screen Negative (Negative) U Methamphetamines Scrn Negative (Negative) Ur MDMA Scrn (Ecstasy) Negative (Negative) U Benzodiazepines Scrn Negative (Negative) Urine Cocaine Screen Negative (Negative) U Marijuana (THC) Screen Negative (Negative) Urine Specific [place] Ethyl Alcohol < 10 ( - 10) mg/dL Ur Creatinine Chlamy pneumoniae PCR Not detected (Not Detect) Adenovirus (PCR) Not detected (Not Detect) B.parapertussis DNA PCR Not detected (Not Detecte) Coronavirus OC43 (PCR) Not detected (Not Detect) Coronavirus HKU1 (PCR) Not detected (Not Detect) Coronavirus 229E (PCR) Not detected (Not Detect) SARS-CoV-2 (PCR) Not detected (Not Detecte) Coronavirus NL63 (PCR) Not detected (Not Detect) Human Metapneumovir PCR Not detected (Not Detect) Influenza Type A (PCR) Not detected (Not Detect) Influenza Type B (PCR) Not detected (Not Detect) M. pneumoniae (PCR) Not detected (Not Detect) Parainfluenza 1 (PCR) Not detected (Not Detect) Parainfluenza 2 (PCR) Not detected (Not Detect) Parainfluenza 3 (PCR) Not detected (Not Detect) Parainfluenza 4 (PCR) Not detected (Not Detect) RSV (PCR) Not detected (Not Detect) Entero/Rhino (PCR) Not detected (Not Detect) 04/13/23 Range/Units 00:20 WBC (4.5-11.0) X10^3/uL RBC (4.0-5.2) X10^6/uL Hgb (12.0-16.0) g/dL Hct (36-46) % MCV (80-100) fL MCH (26-34) PG MCHC (30-36) % RDW (11.6-14.8) % Plt Count (150-400) X10^3/uL Neut % (Auto) (50-75) % Lymph % (Auto) (25-40) % [place] % (Auto) (3-14) % Eos % (Auto) (2-4) % Baso % (Auto) (0-2) % Neut # (Auto) (4847-6573) /uL Lymph # (Auto) (8249-1226) /uL [place] # (Auto) (0-900) /uL Eos # (Auto) (0-450) /uL Baso # (Auto) (0-100) /uL PT (9.4-12.5) SECONDS INR (0.9-1.3) Sodium (137-145) mmol/L Potassium (3.4-5.1) mmol/L Chloride (98-107) mmol/L Carbon Dioxide (22-32) mmol/L BUN (7-17) mg/dL Creatinine (0.52-1.04) mg/dL Estimated GFR (>60) mL/min BUN/Creatinine Ratio (6-22) Glucose (80-110) mg/dL Calcium (8.4-10.2) mg/dL Total Bilirubin (0.2-1.3) mg/dL AST (14-36) IU/L ALT (<35) IU/L Alkaline Phosphatase (38-126) U/L Total Creatine Kinase (30-135) U/L Troponin I (0.01-0.034) ng/mL Total Protein (6.3-8.2) g/dL Albumin (3.5-5.0) g/dL Globulin (1.7-4.1) g/dL Albumin/Globulin Ratio (1.0-2.8) TSH (0.47-4.68) uIU/mL Urine Color Urine Appearance Urine pH Not Reportable (4.5-8.0) Ur Specific [place] (1.000-1.035) Urine Protein (Negative) Urine Glucose (UA) (Negative) g/dL Urine Ketones (NEGATIVE) Urine Occult Blood (Negative) Urine Nitrate (Negative) Urine Bilirubin (NEGATIVE) Urine Urobilinogen (0.2) E.U./dL Ur Leukocyte Esterase (NEGATIVE) Urine RBC (0-5/HPF) Urine WBC (0-5/HPF) Ur Squamous Epith Cells (0-5/HPF) Urine Bacteria (None) Ur Culture Indicated? Vol Urine Centrifuged U Opiates 300ng/mL cut (Negative) Ur Oxycodone Screen (Negative) Urine Methadone Screen (Negative) Ur Barbiturates Screen (Negative) U Tricyclic Antidepress (Negative) Ur Phencyclidine Scrn (Negative) Ur Amphetamines Screen (Negative) U Methamphetamines Scrn (Negative) Ur MDMA Scrn (Ecstasy) (Negative) U Benzodiazepines Scrn (Negative) Urine Cocaine Screen (Negative) U Marijuana (THC) Screen (Negative) Urine Specific [place] Not Reportable Ethyl Alcohol ( - 10) mg/dL Ur Creatinine Not Reportable Chlamy pneumoniae PCR (Not Detect) Adenovirus (PCR) (Not Detect) B.parapertussis DNA PCR (Not Detecte) Coronavirus OC43 (PCR) (Not Detect) Coronavirus HKU1 (PCR) (Not Detect) Coronavirus 229E (PCR) (Not Detect) SARS-CoV-2 (PCR) (Not Detecte) Coronavirus NL63 (PCR) (Not Detect) Human Metapneumovir PCR (Not Detect) Influenza Type A (PCR) (Not Detect) Influenza Type B (PCR) (Not Detect) M. pneumoniae (PCR) (Not Detect) Parainfluenza 1 (PCR) (Not Detect) Parainfluenza 2 (PCR) (Not Detect) Parainfluenza 3 (PCR) (Not Detect) Parainfluenza 4 (PCR) (Not Detect) RSV (PCR) (Not Detect) Entero/Rhino (PCR) (Not Detect) MDM Narrative Medical decision making narrative: Chronically unwell appearing patient with acute on chronic left-sided symptoms at home. On initial report from walk-in clinic it was thought that these are acute changes over the last 2-3 days, however states that patient has had intermittent episodes of left-sided slurred speech, facial droop, worsening left-sided weakness for several years following her stroke and no one can figure out the cause including Neurosurgery and Neurology. She has been compliant with her Keppra and has not missed any doses. Initial delay in obtaining lab work due to difficult IV access. Ultrasound-guided line placed in left AC by myself. Laboratory work is reviewed, patient has chronic anemia and leukopenia. WBC count today 3.0, in 2018 4.1. Today hemoglobin 9.1, in 2018 11.1. Patient also appears to have mild chronic elevation in AST and alkaline phosphatase since 2018 that is grossly unchanged from previous. Noncontrast CT of the brain is negative for acute findings. Patient has slurred speech and drooling has resolved while in the emergency department. Repeatedly requesting that we take out her IV. Initially plan was to order CT angio of the head and neck, however has been reports severe iodine contrast allergy that requires a day of pre medication in order to obtain a contrast scan. Given that this has intermittently happened over several years per I think it is reasonable to defer the scan at this time. I explained the results of all labs and imaging with the at bedside. Again, no exact cause of patient's symptoms found today. She is back to her baseline and no longer has slurred speech or drooling. Again, repeatedly requesting that we take her IV out. Has been counseled to call [place] to follow up with patient's specialists. Discharge Plan Departure Patient Disposition: Home Clinical Impression: Left-sided muscle weakness, Difficult intravenous access Instructions: DI for Seizure Disorder -- Adult Prescriptions: No Action budesonide [Pulmicort] 0.5 mg/2 mL suspension for nebulization 0.5 mg INHALATION BID calcium carbonate [Tums] 200 mg calcium (500 mg) tablet,chewable 200 mg PO BID docusate sodium 100 mg capsule 100 mg PO DAILY fentanyl 100 mcg/hr patch 72 hour 1 patch transdermal Q72H fluticasone propionate 50 mcg/actuation spray,suspension 1 spray NASAL DAILY gabapentin 600 mg tablet 600 mg PO DAILY hydrocodone-chlorpheniramine 10-8 mg/5 mL suspension,extended rel 12 hr 5 ml PO Q12H PRN ipratropium-albuterol 0.5 mg-3 mg(2.5 mg base)/3 mL solution for nebulization 3 ml INHALATION Q6-8H PRN loperamide [Anti-Diarrheal (loperamide)] 2 mg capsule 2 mg PO Q4H lorazepam [Ativan] 1 mg tablet 1 mg PO DAILY PRN morphine 15 mg tablet 15 mg PO Q4H PRN Narcan 4 mg/actuation spray,non-aerosol 4 mg NASAL Q2M PRN nitroglycerin [Nitrostat] 0.4 mg tablet, sublingual 0.4 mg SL Q5M PRN prednisone [Deltasone] 20 mg tablet 20 mg PO DAILY quetiapine [Seroquel] 100 mg tablet 100 mg PO DAILY zolpidem [Ambien CR] 12.5 mg tablet,ext release multiphase 12.5 mg PO BEDTIME PRN clindamycin HCl 300 mg capsule 300 mg PO Q8H fluconazole 150 mg tablet 150 mg PO ONCE Qty: 1 0RF Rx Instructions: as a single dose albuterol sulfate [Ventolin HFA] 90 mcg/actuation Hfa Aerosol Inhaler 2 puff Inhalation Q4H aspirin tablet 1 tab PO DAILY Patient Comments: unknown strength. med list is at home Referrals: Jayesh Hernandez DO [Primary Care Provider] - Stand Alone Forms: Patient Portal/API
[2023-04-12 21:58] LABS: Adenovirus Not Detected (Not Detect); B. parapertussis Not Detected (Not Detecte); Bordetella pertussis Not Detected (Not Detect); Chlamydophila pneumoniae Not Detected (Not Detect); Coronavirus 229E Not Detected (Not Detect); Coronavirus HKU1 Not Detected (Not Detect); Coronavirus NL 63 Not Detected (Not Detect); Coronavirus OC43 Not Detected (Not Detect); Human Metapneumovirus Not Detected (Not Detect); Human Rhinovirus/Enterovirus Not Detected (Not Detect); Influenza A Not Detected (Not Detect); Influenza B Not Detected (Not Detect); Mycoplasma pneumoniae Not Detected (Not Detect); Parainfluenza Virus 1 Not Detected (Not Detect); Parainfluenza Virus 2 Not Detected (Not Detect); Parainfluenza Virus 3 Not Detected (Not Detect); Parainfluenza Virus 4 Not Detected (Not Detect); Respiratory Syncytial Virus Not Detected (Not Detect); SARS- CoV-2 Not Detected (Not Detecte)
--- NOTE | 2023-04-12 22:31 | PC.NURSE ---
3 attempts at an IV by this EDRN were unsuccessful.
[2023-04-12 22:41] LABS: Add Manual Diff / Slide Review NO; Basophils Absolute Auto 100 /uL (0-100); Basophils Percent Auto 1.8 % (0-2); Eosinophils Absolute Auto 300 /uL (0-450); Eosinophils Percent Auto 10.3 % (2-4); Hemoglobin 9.1 g/dL (12.0-16.0); Lymphocytes Absolute Auto 1100 /uL (1100-4500); Lymphocytes Percent Auto 34.9 % (25-40); Mean Corpuscular HGB Conc 33.7 % (30-36); Mean Corpuscular Hemoglobin 36.4 PG (26-34); Monocytes Absolute Auto 200 /uL (0-900); Monocytes Percent Auto 5.9 % (3-14); Neutrophils Absolute Auto 1400 /uL (1500-7000); Neutrophils Percent Auto 47.1 % (50-75); Platelet Count 186 X10^3/uL (150-400); Red Cell Distribution Width 18.3 % (11.6-14.8)
[2023-04-12 22:49] LABS: Prothrombin Time 11.9 SECONDS (9.4-12.5)
[2023-04-12 22:54] LABS: Alanine Aminotransferase 25 IU/L (<35); Albumin 3.4 g/dL (3.5-5.0); Albumin Globulin Ratio 0.9 (1.0-2.8); Alkaline Phosphatase 373 U/L (38-126); Aspartate Aminotransferase 75 IU/L (14-36); BUN Creatinine Ratio 12.5 (6-22); Bilirubin Total 1.1 mg/dL (0.2-1.3); Blood Urea Nitrogen 7 mg/dL (7-17); Calcium 8.3 mg/dL (8.4-10.2); Carbon Dioxide 32 mmol/L (22-32); Chloride 103 mmol/L (98-107); Creatine Kinase 37 U/L (30-135); Estimated Glomerular Filt Rate > 60 mL/min (>60); Ethanol (ETOH) < 10 mg/dL; Globulin 3.9 g/dL (1.7-4.1); Glucose 93 mg/dL (80-110); HEMOLYSIS < 15 (0-50); Potassium 3.5 mmol/L (3.4-5.1); Sodium 138 mmol/L (137-145); Total Protein 7.3 g/dL (6.3-8.2)
[2023-04-12 23:05] LABS: Troponin I < 0.012 ng/mL (0.01-0.034)
[2023-04-12] MEDS: SODIUM CHLORIDE 0.9% 500 ML 1000 ML IV (23:23)
[2023-04-12 23:45] LABS: Thyroid Stimulating Hormone 1.45 uIU/mL (0.47-4.68)
[2023-04-12] MEDS: SODIUM CHLORIDE 0.9% 1,000 ML 1000 ML IV (23:50)
[2023-04-13] VITALS (13 sets, daily range): BP systolic 91–123; BP diastolic 51–59; PULSE 74–79; RESP 12–17; O2SAT 98–100
--- NOTE | 2023-04-13 | PC.NURSE ---
Pt reports feeling woozy. Vitals rechecked and provider made aware.
[2023-04-13 00:42] LABS: Appearance Urine UA CLEAR; Bilirubin Urine UA NEGATIVE (NEGATIVE); Color Urine UA YELLOW; Glucose Urine UA NEGATIVE (Negative); Ketones Urine UA NEGATIVE (NEGATIVE); Leukocyte Esterase Urine UA NEGATIVE (NEGATIVE); Nitrite Urine UA NEGATIVE (Negative); Occult Blood Urine UA NEGATIVE (Negative); Protein Urine UA NEGATIVE (Negative); Specific Gravity Urine UA 1.015 (1.000-1.035)
[2023-04-13 00:45] LABS: pH Urine UA 6.5 (4.5-8.0)
[2023-04-13 00:47] LABS: UR Morphine/Opiate cutoff 300 Positive (Negative); Urine Amphetamines Negative (Negative); Urine Barbiturates Negative (Negative); Urine Benzodiazepines Negative (Negative); Urine Cocaine Negative (Negative); Urine MDMA Negative (Negative); Urine Methadone Negative (Negative); Urine Methamphetamines Negative (Negative); Urine Oxycodone Negative (Negative); Urine Phencyclidine Negative (Negative); Urine Tetrahydrocannabinol Negative (Negative); Urine Tricyclic Antidepressant Negative (Negative)
[2023-04-13 00:51] LABS: Bacteria Urine None Seen; Culture Indicated Urine Cult Not Indicated; RBC Urine None Seen (0-5/HPF); Squamous Epithelial Cell Urine 0-1 /HPF (0-5/HPF); Urine Volume 10mL (spun); WBC Urine None Seen (0-5/HPF)
[2023-04-13] MEDS: HYDROMORPHONE 2 MG TABLET PO (01:05)
== END 2023-04-13 01:25 | disposition home or self-care (01) ==
PROVIDERS: Emergency Provider Emergency Medicine; PCP Family Medicine
DX: M62.81 Muscle weakness (generalized) (principal); G40.909 Epilepsy, unspecified, not intractable, without status epilepticus; R07.9 Chest pain, unspecified; R47.81 Slurred speech; D64.9 Anemia, unspecified; D72.819 Decreased white blood cell count, unspecified; Z78.9 Other specified health status; Z20.822 Contact with and (suspected) exposure to COVID-19; S49.92XA Unspecified injury of left shoulder and upper arm, initial encounter; M54.12 Radiculopathy, cervical region; M54.2 Cervicalgia; M85.89 Other specified disorders of bone density and structure, multiple sites; M19.032 Primary osteoarthritis, left wrist; M79.602 Pain in left arm; W19.XXXA Unspecified fall, initial encounter; Z96.612 Presence of left artificial shoulder joint; Z98.1 Arthrodesis status
CPT/HCPCS: 70450; 71045; 72040; 73030; 73070; 73110; 80053; 80305; 80320; 81001; 82550; 84443; 84484; 85025; 85610; 87633; 93005; 96360; 96361; 99285

== ENCOUNTER 2023-06-27 19:17 | Emergency (ER) | payer MEDICARE, MEDICAID, SELFPAY ==
--- NOTE | 2023-06-27 19:15 | PC.NURSE ---
patient called in the ER lobby with no answer.
--- NOTE | 2023-06-27 20:00 | PC.NURSE ---
patient called in the ER lobby with no answer.
== END 2023-06-27 19:31 | disposition left against medical advice (07) ==
PROVIDERS: Emergency Provider Emergency Medicine; PCP Family Medicine